=== PATIENT | female | born 1980 | race Caucasian/White ===

== ENCOUNTER 2016-09-18 23:53 | Emergency (ER) | payer OTHER ==
[2016-09-19 01:35] VITALS: BP 131/87
== END 2016-09-19 01:35 | disposition home or self-care (01) ==
LOC: ED 23:53
DX: L29.9 Pruritus, unspecified (principal)
CPT/HCPCS: J1200; J2930

== ENCOUNTER 2016-10-07 17:37 | Emergency (ER) | payer OTHER ==
[~2016-10-07] VITALS: Ht 170.2 cm; Wt 101.6 kg
[2016-10-07 19:41] VITALS: BP 122/78
== END 2016-10-07 19:41 | disposition home or self-care (01) ==
LOC: ED 17:37
DX: M54.12 Radiculopathy, cervical region (principal); M62.838 Other muscle spasm; M54.6 Pain in thoracic spine; R51 Headache; M46.96 Unspecified inflammatory spondylopathy, lumbar region
CPT/HCPCS: 72072; J1885; J2800

== ENCOUNTER 2018-02-22 11:13 | Emergency (ER) | payer OTHER ==
[~2018-02-22] VITALS: Ht 170.2 cm; Wt 93.6 kg
[2018-02-22 11:20] VITALS: Ht 170.2 cm; Wt 93.6 kg
[2018-02-22 13:40] VITALS: BP 128/71
== END 2018-02-22 13:41 | disposition home or self-care (01) ==
LOC: ED 11:13
DX: R51 Headache (principal); R11.0 Nausea; R42 Dizziness and giddiness; H53.149 Visual discomfort, unspecified; Z90.49 Acquired absence of other specified parts of digestive tract; Z98.51 Tubal ligation status
CPT/HCPCS: J0780; J1885